=== PATIENT | female | born 1955 | race Caucasian/White ===

== ENCOUNTER 2020-10-06 07:35 | Emergency (ER) | payer BC, OTHER ==
[~2020-10-06] VITALS: Ht 177.8 cm; Wt 92.2 kg
[~2020-10-06 07:35] MED LIST: ACET500T64 PO; ALBU0.63 NEB; ALBU18HF INH; ASPI-963 PO; ATEN25TA PO; CIPR500T4 PO; HYDR2TAB29 PO; METF10002 PO; METF500T17 PO; SIMV20TA19 PO
--- NOTE | 2020-10-06 08:07 | NUR ---
ASSUMED CARE OF PT AT THIS TIME FROM [facility]. ALTON SCHAEFER AT BEDSIDE FOR EVALUATION. 64 Y/O F PRESENTS STATNG "THIS SMOKE IS MAKING MY COPD ACT UP, I'M SHORT OF BREATH, USING MY INHALERS AND NEBULIZER AT HOME, I'M NOT ALLOWED TO WEAR MY OXYGEN AT WORK SO I HAVE TO TAKE BREAKS TO GET IT SO THAT'S NPT HELPING, I USE 2-3L O2 AT ALL TIMES. MY CHEST HAS BEEN HURTING FOR A WEEK OR SO NOW, I'M ALWAYS IN PAIN THOUGH SO NOT REALLY NEW, LIKE 2-04/25. THEN THIS VEIN IN MY LEFT ARM IS HARD AND PAINFUL FROM ARMPIT TO FOREARM, STARTED WHEN I STARTED LIFTING WEIGHTS RECENTLY." EKG DONE IN TRIAGE. CONT PULSE OX, BP, CARDIAC MONITORS APPLIED. VSS. SR ON MONITOR. CALL LIGHT IN REACH. FALL PRECAUTIONS IN PLACE. SIDE RAILS UPX2. A&OX4. ASSESSMENT COMPLETED. PT WITH WORK OF BREATHING NOTED, NO ACCESSORY MUSCLE USE. LUNGS DIMINISHED THROUGOUT, AUDIBLE EXP WHEEZING NOTED. SKIN PWD. AWAITING ORDERS FROM PROVIDER.
--- NOTE | 2020-10-06 08:12 | NUR ---
LAB AT BEDSIDE
--- NOTE | 2020-10-06 08:22 | NUR ---
RAD AND US AT BEDSIDE
[2020-10-06 08:26] LABS: BASOPHILS % (AUTO) 1 % (0-1); EOSINOPHILS % (AUTO) 3 % (1-7); LYMPHOCYTES % (AUTO) 29 % (22-44); MEAN CORPUSCULAR HEMOGLOBIN 30.4 pg (27.0-34.8); MEAN CORPUSCULAR HGB CONC 33.3 g/dL (32.4-35.8); MEAN PLATELET VOLUME 7.9 fL (7.4-10.4); MONOCYTES % (AUTO) 6 % (2-9); NEUTROPHILS % (AUTO) 61 % (42-75); PLATELET COUNT 197 x10^3/uL (130-400); RED BLOOD COUNT 4.45 x10^6/uL (3.82-5.3); RED CELL DISTRIBUTION WIDTH 13.1 % (9.6-15.2)
[2020-10-06 08:34] LABS: ALANINE AMINOTRANSFERASE 30 U/L (12-78); ALBUMIN 3.4 g/dL (3.4-5.0); ANION GAP 4 mmol/L (5-15); CALCIUM 9.2 mg/dL (8.5-10.1); CHLORIDE 103 mmol/L (98-107); CREATININE 0.69 mg/dL (0.55-1.02)
[2020-10-06 08:38] LABS: ALKALINE PHOSPHATASE 75 U/L (45-117); BILIRUBIN,TOTAL 0.6 mg/dL (0.2-1.0); TOTAL PROTEIN 7.9 g/dL (6.4-8.2)
[2020-10-06 08:42] LABS: TROPONIN I < 0.015 ng/mL (0.000-0.045)
--- NOTE | 2020-10-06 08:56 | NUR ---
PT RESTING IN POSITION OF COMFORT ON GURNERY USING CELL PHONE. NAD NOTED. RESPIRATORY EFFORT IMPROVED FROM ARRIVAL. PULSE OX 100% 3L NC O2, PT STATES "I ALWAYS USE MY 3L SOMETIMES 2 BUT 3 IS BEST." RR 18-20. SR ON MONITOR. AWAITING US RESULTS. VSS. CALL LIGHT IN REACH. FALL PRECAUTIONS IN PLACE.
[2020-10-06 09:00] VITALS: BP 163/63
== END 2020-10-06 10:00 | disposition home or self-care (01) ==
LOC: ED 09:20
DX: M79.622 Pain in left upper arm (principal); R07.89 Other chest pain; I10 Essential (primary) hypertension; E11.9 Type 2 diabetes mellitus without complications; J44.9 Chronic obstructive pulmonary disease, unspecified; I25.2 Old myocardial infarction; Z87.891 Personal history of nicotine dependence
CPT/HCPCS: 36415; 71045; 80053; 84484; 85025; 93005; 99285